=== PATIENT | female | born 1975 | race Caucasian/White ===

== ENCOUNTER 2024-07-16 08:17 | Outpatient (OUT) | payer BC, SELFPAY ==
[2024-07-16 08:33] LABS: Basophils Absolute Auto 0.1 10^3/uL (0.0-0.1); Basophils Percent Auto 1.5 % (0.2-2.0); Eosinophils Absolute Auto 0.1 10^3/uL (0.0-0.7); Eosinophils Percent Auto 2.3 % (0.9-7.0); Hematocrit 41.2 % (36.0-48.0); Hemoglobin 13.4 g/dL (12.0-16.0); Immature Granulocytes Abs Auto 0.01 10^3/uL (0.00-0.03); Immature Granulocytes Pct Auto 0.2 % (0.0-0.5); Lymphocytes Absolute Auto 1.9 10^3/uL (1.2-3.8); Lymphocytes Percent Auto 38.9 % (20.5-60.0); Mean Corpuscular HGB Conc 32.5 g/dL (29.9-35.2); Mean Corpuscular Hemoglobin 28.3 pg (26.7-34.0); Mean Corpuscular Volume 86.9 fL (81.0-99.0); Mean Platelet Volume 9.5 fL (9.5-13.5); Monocytes Absolute Auto 0.6 10^3/uL (0.3-0.8); Monocytes Percent Auto 11.5 % (1.7-12.0); Neutrophils Absolute Auto 2.2 10^3/uL (1.4-6.5); Neutrophils Percent Auto 45.6 % (43.0-75.0); Platelet Count 207 10^3/uL (150-450); Red Blood Count 4.74 10^6/uL (4.20-5.40); White Blood Count 4.8 10^3/uL (4.0-11.0)
[2024-07-16 10:13] LABS: Free T4 0.79 ng/dL (0.76-1.46)
[2024-07-16 10:15] LABS: Anion Gap 11.5; BUN Creatinine Ratio 15.1; Calcium 8.5 mg/dL (8.5-10.1); Carbon Dioxide 26.2 mmol/L (21.0-32.0); Chloride 106 mmol/L (98-107); Estimated GFR (African America >60 (>=60); Estimated GFR (Non-African Ame >60 (>=60); Free T3 2.39 pg/mL (2.18-3.98); Glucose 87 mg/dL (74-106); Potassium 3.7 mmol/L (3.5-5.1); Sodium 140 mmol/L (136-145); Thyroid Stimulating Hormone 9.035 uIU/mL (0.358-3.740)
== END 2024-07-16 08:18 | disposition home or self-care (01) ==
LOC: LAB 08:21
PROVIDERS: PCP Family Medicine; Visit Provider Family Medicine
DX: R53.83 Other fatigue (principal); E03.9 Hypothyroidism, unspecified; L65.9 Nonscarring hair loss, unspecified
CPT/HCPCS: 36415; 80048; 84439; 84443; 84481; 85025

== ENCOUNTER 2024-10-01 08:23 | Outpatient (OUT) | payer BC, SELFPAY ==
--- OUTSIDE RECORDS SUMMARY | 2024-10-01 08:45 | XMS_ITS | CCD ---
Author Organization [facility] Clini[facility] Care Team Providers Care Welding Engineer Name Role Phone Kassaava, Arnold Unavailable Unavailable Kassavin, Arnold Unavailable Unavailable Kassavin, Arnold Unavailable Unavailable AMIN, DAINA~[phone] UNKNOWN Unavailable Unavailable AMIN, DAINA~[phone] UNKNOWN Unavailable Unavailable AMIN, DAINA~[phone] UNKNOWN Unavailable Unavailable AMIN, DAINA~[phone] UNKNOWN Unavailable Unavailable AMIN, DAINA~[phone] UNKNOWN Unavailable Unavailable KASSAVIN, ARNOLD Unavailable Unavailable AMIN, DAINA E Unavailable Unavailable KASSAVIN, ARNOLD Unavailable Unavailable AMIN, DAINA E Unavailable Unavailable KASSAVIN, ARNOLD Unavailable Unavailable AMIN, DAINA E Unavailable Unavailable BIJAL VILLAGRAN Attending Unavailable ELOISA DAINA Primary Care Unavailable JANEE EPSTEIN Admitting Unavailable ELOISA DAINA Jack Primary Care Unavailable JANEE EPSTEIN Attending Unavailable JANEE EPSTEIN Consulting Unavailable JANEE EPSTEIN Attending Unavailable JANEE EPSTEIN Consulting Unavailable JANEE EPSTEIN Admitting Unavailable Carola Benavides Unavailable [phone] Allergies Allergy Classification Reported Allergen(s) Allergy Type Date of Onset Reaction(s) Facility (2 sources) Penicillins; Translations: [PENICILLINS] Propensity to adverse reactions to drug (disorder) 10-15-20 17 [facility] Repository (1 source) Penicillin Drug Allergy 03-06-20 16 Unknown [facility] Other (1 source) Substance with penicillin structure and antibacterial mechanism of action (substance) Drug allergy 04-02-20 17 Unknown [facility] Other (1 source) [facility] Propensity to adverse reactions 01-02-20 18 Unknown [facility] Other (1 source) patient allergy list reviewed by nurse or physicia Propensity to adverse reactions 06-25-20 Comment:Done [facility] Other (1 source) Allergies Reconciled Propensity to adverse reactions Unknown [facility] Other Medications Current Medications Medication Drug Class(es) Dates Sig (Normalized) Sig (Original) doxycycline monohydrate 100 mg oral tablet (1 source) Tetracycline-clas s Drug Start: 10-15-2023 take 1 tablet by mouth every twelve hours Doxycycline Monohydrate 100 MG 1 tablet Orally Twice a day for 10 days Sep, Active Completed/Discontinued Medications Medication Drug Class(es) Dates Sig (Normalized) Sig (Original) phentermine hydrochloride 37.5 mg oral tablet (2 sources) Sympathomimetic Amine Anorectic Start: 01-26-2024 End: 07-15-2024 take 1 tablet by mouth once daily 30 minutes after breakfast Phentermine (Adipex-P) 37.5 mg tablet Discontinued 37.5 MG PO Every morning February 26, 2024 4:39pm July 15, 2024 8:53am must administer 30 minutes before or 1-2 hours after breakfast Problems Active Problems Problem Classification Problem Date Documented Date Episodic/Chronic Abdominal pain (1 source) Pelvic and perineal pain; Translations: [Pelvic and perineal pain] Episodic Anxiety disorders (2 sources) Anxiety disorder; Translations: [Anxiety disorder, unspecified] 01-23-2024 Chronic Malaise and fatigue (2 sources) Fatigue; Translations: [Other fatigue] 07-15-2024 Episodic Menstrual disorders (2 sources) Excessive and frequent menstruation; Translations: [Excessive and frequent menstruation with regular cycle] Chronic Mood disorders (2 sources) Dysthymia; Translations: [Dysthymic disorder] Onset: 04-04-2016 01-23-2024 Chronic Other aftercare (1 source) History and physical examination, follow-up; Translations: [Encounter for follow-up examination after completed treatment for conditions other than malignant neoplasm] Episodic Other female genital disorders (1 source) Noninflammatory disorder of the vagina; Translations: [Other specified noninflammatory disorders of vagina] Episodic Other non-traumatic joint disorders (1 source) Arthropathy; Translations: [Joint disorder, unspecified] Episodic Other nutritional; endocrine; and metabolic disorders (2 sources) Obesity; Translations: [Obesity, unspecified] 01-27-2024 Chronic Other nutritional; endocrine; and metabolic disorders (1 source) Obese class I; Translations: [Body mass index 34.0-34.9, adult] Onset: 01-05-2018 Chronic Other nutritional; endocrine; and metabolic disorders (3 sources) Obese class II; Translations: [Body mass index 37.0-37.9, adult] Onset: 03-06-2016 Chronic Other nutritional; endocrine; and metabolic disorders (1 source) Body mass index 30+ - obesity; Translations: [Body mass index 36.0-36.9, adult] Onset: 03-24-2017 Chronic Other nutritional; endocrine; and metabolic disorders (4 sources) Abnormal weight gain; Translations: [ABNORMAL WEIGHT GAIN] Onset: 09-16-2020 Episodic Other nutritional; endocrine; and metabolic disorders (1 source) Abnormal weight gain; Translations: [Abnormal weight gain] Episodic Other screening for suspected conditions (not mental disorders or infectious disease) (1 source) Imaging result abnormal; Translations: [Abnormal findings on diagnostic imaging of other specified body structures] Chronic Other screening for suspected conditions (not mental disorders or infectious disease) (1 source) Blood chemistry abnormal; Translations: [Abnormal finding of blood chemistry, unspecified] Episodic Other skin disorders (1 source) Loss of hair; Translations: [Nonscarring hair loss, unspecified] 07-15-2024 Episodic Other skin disorders (1 source) Nonscarring hair loss, unspecified; Translations: [Alopecia, unspecified] 07-15-2024 Episodic Other upper respiratory infections (2 sources) Chronic sinusitis; Translations: [Chronic sinusitis, unspecified] 01-23-2024 Chronic Other upper respiratory infections (2 sources) Acute maxillary sinusitis; Translations: [Acute recurrent maxillary sinusitis] Onset: 09-26-2016 Episodic Spontaneous (1 source) Miscarriage without complication; Translations: [Complete or unspecified spontaneous without complication] Episodic Thyroid disorders (3 sources) Hypothyroidism; Translations: [Hypothyroidism, unspecified] 01-23-2024 Chronic Past or Other Problems Problem Classification Problem Date Documented Da te Episodic/Chronic Contraceptive and procreative management (1 source) Surveillance of contraception; Translations: [Encounter for contraceptive management, unspecified] Resolved: 09-11-2020 Episodic Deficiency and other anemia (2 sources) Iron deficiency anemia; Translations: [Iron deficiency anemia, unspecified] Onset: 03-06-2016 01-23-2024 Episodic Diseases of mouth; excluding dental (1 source) Recurrent aphthous stomatitis; Translations: [Recurrent oral aphthae] Onset: 12-19-2016 Episodic Genitourinary symptoms and ill-defined conditions (1 source) Dysuria; Translations: [Dysuria] Onset: 08-13-2017 Episodic Inflammatory diseases of female pelvic organs (5 sources) Acute vaginitis; Translations: [Acute vaginitis] Onset: 06-25-2018 Episodic Other connective tissue disease (1 source) Pain in limb; Translations: [Pain in right lower leg] Onset: 01-21-2019 Episodic Phlebitis; thrombophlebitis and thromboembolism (2 sources) Personal history of other venous thrombosis and embolism; Translations: [Thrombophlebitis of superficial veins of lower extremity] Onset: 10-02-2017 Episodic Residual codes; unclassified (1 source) Edema; Translations: [Edema] Onset: 09-25-2017 Episodic Unclassified (1 source) Localized edema; Translations: [Localized edema] Onset: 10-15-2017 Episodic Results Test Name Value Interpretation Reference Range Facility CBC AUTO DIFFon 09-16-2020 Basophils (Bld) [#/Vol] 0.1 103/ul Normal 0.0-0.1 [facility] Comment on above: Performed By: #### C BC #### [facility] [address] [place], [place] [address] Hola Veronique Basophils/100 WBC (Bld) 1.1 % Normal 0.2-2.0 [facility] Comment on above: Performed By: #### C BC #### [facility] [address] [place], [place] [address] Hola Veronique Eosinophils (Bld) [#/Vol] 0.1 103/ul Normal 0.0-0.7 [facility] Comment on above: Performed By: #### C BC #### [facility] [address] [place], [place] [address] Hola Veronique Eosinophils/100 WBC (Bld) 0.9 % Normal 0.9-7.0 [facility] Comment on above: Performed By: #### C BC #### [facility] [address] [place], [place] [id number] Hola Veronique Erythrocyte distribution width (RBC) [Ratio] 13.1 % Normal 11.0-15.0 [facility] Comment on above: Performed By: #### C BC #### [facility] [address] [place], [place] [id number] Hola Veronique Hematocrit (Bld) [Volume fraction] 42.9 % Normal 36.0-48.0 [facility] Comment on above: Performed By: #### C BC #### [facility] [address] [place], [place] [id number] Hola Veronique Hemoglobin (Bld) [Mass/Vol] 14.0 g/dL Normal 12.0-16.0 [facility] Comment on above: Performed By: #### C BC #### [facility] [address] [place] [address] Hola Veronique IG # 0.01 10e3/ul Normal 0.00-0.03 [facility] Comment on above: Performed By: #### C BC #### [facility] [address] [place] [address] Hola Veronique IG % 0.2 % Normal 0.0-0.5 [facility] Comment on above: Performed By: #### C BC #### [facility] [address] [place], [place] [id number] Hola Veronique Lymphocytes (Bld) [#/Vol] 1.8 103/ul Normal 1.2-3.8 [facility] Comment on above: Performed By: #### C BC #### [facility] [address] [place] [address] Hola Veronique Lymphocytes/100 WBC (Bld) 34.0 % Normal 20.5-60.0 [facility] Comment on above: Performed By: #### C BC #### [facility] [address] [place], [place] [id number] Hola Veronique MANUAL DIFF REQ NO Normal [facility] Comment on above: Performed By: #### C BC #### [facility] [address] [place] [address] Hola Veronique MCH (RBC) [Entitic mass] 28.6 pg Normal 26.7-34.0 [facility] Comment on above: Performed By: #### C BC #### [facility] [address] [place] [address] Hola Piper MCHC (RBC) [Mass/Vol] 32.6 g/dL Normal 29.9-35.2 [facility] Comment on above: Performed By: #### C BC #### [facility] [address] [place] [address] Holafranklyn Piper MCV (RBC) [Entitic vol] 87.6 fL Normal 81.0-99.0 [facility] Comment on above: Performed By: #### C BC #### [facility] [address] [place] [address] Hola Veronique Monocytes (Bld) [#/Vol] 0.6 103/ul Normal 0.3-0.8 [facility] Comment on above: Performed By: #### C BC #### [facility] [address] [place] [address] Holafranklyn Piper Monocytes/100 WBC (Bld) 10.5 % Normal 1.7-12.0 [facility] Comment on above: Performed By: #### C BC #### [facility] [address] [place] [address] Hola Veronique Neutrophils (Bld) [#/Vol] 2.8 103/ul Normal 1.4-6.5 [facility] Comment on above: Performed By: #### C BC #### [facility] [address] [place] [address] Hola Veronique Neutrophils/100 WBC (Bld) 53.3 % Normal 43.0-75.0 [facility] Comment on above: Performed By: #### C BC #### [facility] [address] [place] [address] Hola Veronique Platelet mean volume (Bld) [Entitic vol] 10.3 fL Normal 9.5-13.5 [facility] Comment on above: Performed By: #### C BC #### [facility] [address] [place], [place] [address] Holafranklyn Piper Platelets (Bld) [#/Vol] 226 103/ul Normal 150-450 [facility] Comment on above: Performed By: #### C BC #### [facility] [address] [place], [place] [address] Hola Veronique RBC (Bld) [#/Vol] 4.90 106/ul Normal 4.20-5.40 [facility] Comment on above: Performed By: #### C BC #### [facility] [address] [place] [address] Hola Veronique WBC (Bld) [#/Vol] 5.3 103/ul Normal 4.0-11.0 [facility] Comment on above: Performed By: #### C BC #### [facility] [address] [place] [address] Hola Veronique FREE T3on 09-16-2020 Free T3 [Mass/Vol] 2.66 pg/mL Critically low 2.77-5.27 [facility] Comment on above: Performed By: #### F T3, TSH #### [facility] [address] [place], [place] [id number] Hola Veronique FREE T4on 09-16-2020 Free T4 [Mass/Vol] 0.92 ng/dL Normal 0.78-2.19 [facility] Comment on above: Performed By: #### F T4 #### [facility] [address] [place] [address] Hola Veronique GLYCOHEMOGLOBIN A1Con 2019 Glucose [Mass/Vol] 114 mg/dL Normal [facility] Comment on above: Performed By: #### A 1C #### [facility] [address] [place] [address] Hola Veronique HbA1c (Bld) [Mass fraction] 5.6 % Normal <=6.0 [facility] Comment on above: Performed By: #### A 1C #### [facility] [address] [place] [address] Hola Veronique TSHon 09-16-2020 TSH Qn SEE BELOW Normal [facility] Comment on above: Result Comment: <0.3 4 UIU/ml HYPERTHYROID 0.34-5.60 UIU/ml EUTHYROID >5.60 UIU/ml HYPOTHYROID Performed By: #### F T3, TSH #### [facility] [address] [place] [address] Hola Piper TSH Qn 11.588 uIU/mL Critically high 0.470-4.680 [facility] Comment on above: Performed By: #### F T3, TSH #### [facility] [address] [place] [address] Hola Piper VAGINITIS/VAGINOSIS DNA PROB Francisco Javier 09-14-2020 Libra species Negative Normal Negative [facility] Comment on above: Performed By: #### V AGINT #### [facility] [address] [place] [address] Hola Veronique Gardnerella vaginalis Positive Abnormal Negative [facility] Comment on above: Performed By: #### V AGINT #### [facility] [address] [place] [address] Hola Piper Trichomonas vaginalis Negative Normal Negative [facility] Comment on above: Performed By: #### V AGINT #### [facility] [address] [place] [address] Hloa Piper CTA CHEST W WO CONTRASTon CTA CHEST W WO CONTRAST HISTORY: LEXIE CORRALES is a Female of 43 years age. Evaluate for pulmonary embolism. COMMENTS: CHEST PAIN, SOB COMPARISON: None TECHNIQUE: Thin spiral chest CT was performed per pulmonary embolism protocol, following uneventful administration of intravenous contrast. Amount of intravenous contrast: 100 mL of Isovue-370. MIP images are included. FINDINGS: There is no intraluminal filling defect identified within the central and proximal segmental pulmonary arteries to suggest pulmonary embolism. The thoracic aorta shows no evidence for dissection. Mild groundglass opacities are seen in the bases and in the lingula and right middle lobe inferiorly.. Also there is atelectasis. There are no definite pulmonary nodules. In the prevascular region there is soft tissue density that measures about 1.2 x 2.7 cm and is triangular-shaped. This could represent residual thymus. There is no hilar or axillary lymphadenopathy. No evidence of chest wall mass or pleural effusion is present. The central airways and visualized portion of the esophagus are normal. Limited survey views of the upper abdomen show a 9 mm nodule in the left adrenal gland. Mild degenerative changes are seen in the thoracic spine. IMPRESSION: 1. No CT evidence of pulmonary embolism in the primary or secondary branches of the pulmonary arteries. 2. There are groundglass opacities and atelectasis. No consolidating pneumonia or pneumothorax is seen. All CT scans at this facility use dose modulation, iterative reconstruction, and/or weight based dosing when appropriate to reduce radiation dose to as low as reasonably achievable. Interpreted by: Kevon Mast DO Signed by: Kevon Mast DO 04/01/19 Final result Normal [facility] Coding Summary.on 01-19-2018 Coding Summary. CODING DATE: 018 FINAL [facility] STATUS: Home (Routine DC) PAYOR: Commercial Insurance ADMIT DX: REASON FOR VISIT DX: Z12.31 Encounter for screening mammogram for malignant neoplasm of breast FINAL DX: PRINCIPAL: Z12.31 Encounter for screening mammogram for malignant neoplasm of breast SECONDARY: E03.9 Hypothyroidism, unspecified PROCEDURES DOCTOR NAME DATE NOTE: The code number assigned matches the documented diagnosis and / or procedure in the patient's chart. However, the narrative phrase printed from the coding software may appear abbreviated, or result in slightly different terminology. Coded By: Manuela Spears Date Saved: 01/19/2018 10:03 am Normal [facility] [place] Mamm Screen w/CAD if perf and 3D Bilon 01-17-2018 Bilirubin (direct) Exam Date/Time: 018 17:53 ESTReason for Exam:SCREENINGReportIMPRESSI ON: BIRADS 1 NEGATIVE, NORMAL INTERVAL FOLLOW-UP (10R1)Follow-up: 12 MONTH RECALLCLINICAL HISTORY: SCREENING.COMPARISONS: None available.TECHNIQUE: Routine full-field digital mammograms and 3D breast tomosynthesis of bothbreasts were obtained. FINDINGS: Both breasts are heterogeneously dense with mild asymmetry.There are no dominant masses, suspicious microcalcifications, areas of architecturaldistortion, or other findings of concern are identified.Dense Breast: YesCAD analysis was performed and used in the interpretation.Board Certified Radiologists. Accredited by the ACR and FDA.MAMMOGRAPHY IS VERY IMPORTANT TO YOUR HEALTH. THE CURRENT [employer] GUIDELINES RECOMMENDS ANNUALMAMMOGRAPHY BEGINNING AT AGE 40. THIS FACILITY UTILIZES A REMINDER SYSTEM TO ENSURE ALL PATIENTS RECEIVE REMINDERNOTIFICATIONS AT THE APPROPRIATE TIME BASED ON THE RECOMMENDATIONS OF THIS EXAM.\X09\ FINAL REPORT Dictated: 01/17/2018 3:08 pm Jarret Mena MD Signed (Electronic Signature): 01/17/2018 3:08 pm Signed by: Jarret Mena MD Transcribed by: CHONG Technologist: VICKI Assessment: BI-RADS Category 1-Negative Recommendation: Normal interval follow-up Normal [facility] Free T4on 01-15-2018 Thyroxine (T4) free 0.74 ng/dL Normal 0.58-1.64 [facility] Comment on above: Performed By: #### 2 [id number], [id number] ####[facility] [address] [place] [address] TSHon 01-15-2018 Thyroid stimulating hormone (TSH) 14.28 mcIU/mL High 0.34-5.60 [facility] Comment on above: Performed By: #### 2 [id number], [id number] ####[facility] [address] [place] [address] Coding Summary.on 01-01-2018 Coding Summary. CODING DATE: 018 FINAL [facility] STATUS: Home (Routine DC) PAYOR: Commercial Insurance APC DESCRIPTION 5522 Level 2 Imaging without Contrast ADMIT DX: REASON FOR VISIT DX: Z86.718 Personal history of other venous thrombosis and embolism FINAL DX: PRINCIPAL: Z86.718 Personal history of other venous thrombosis and embolism SECONDARY: I82.811 Embolism and thrombosis of superficial veins of right lower extremity PYMT PROC APC STAT DESCRIPTION DOCTOR NAME DATE NOTE: The code number assigned matches the documented diagnosis and / or procedure in the patient's chart. However, the narrative phrase printed from the coding software may appear abbreviated, or result in slightly different terminology. Coded By: Manuela Spears Date Saved: 01/01/2018 01:37 pm Normal [facility] PROGRESSon 12-31-2017 PROGRESS HNO ID: [id number] thor: Arnold Alva: (none)Author Type: PhysicianType: Progress NotesFiled: 12/31/2017 2:03 PMNote Text:Heart and Vascular [facility] Analy Martinez Department of Cardiovascular MedicineOUTPATIENT VISIT DATE December 31, 2017OUTPATIENT VISIT TYPEESTABLFORMERLY [facility]PRD.[facility] CARE PHYSICIAN:Daina Amin MD ([facility])[address] [facility] [place] [address]Enpxi: [phone]: [phone] PHYSICIANDaina Amin MD ([facility])[address] [facility] [id number] COMPLAINT:No chief complaint on file.HISTORY OF PRESENT ILLNESS:Lexie Corrales was referred for consultation by Dr. Amin. Opinions andrecommendations in this consultation will be transmitted back to thereferring physician by [facility] notes or via mail.Ms. Corrales is a 42 year old female who is seen today for follow upevaluation of right gastrocnemius DVT and small saphenous veinthrombophlebitis diagnosed at the [facility] 09/25/17.States she is doing well, has only mild intermittent discomfort in theright calf.Underwent DUS which showed some thrombus in the right small saphenousvein. Negative otherwise.On Eliquis.Initial symptoms had been preceded by few day history of severe right calfcramps. Started on Eliquis by Dr Amin which she continues. Had been onOCT, discontinued since.No recent travel, no significant period of immobility, nonsmoker. No FHxof hypercoagulable syndrome.No past medical history on file.No past surgical history on file.PAST MEDICAL HISTORYDiagnosis Date- DVT (deep venous thrombosis) (HCC)No past surgical history on file.SOCIAL HISTORYSocial HistorySubstance Use Topics- Smoking status: Never Smoker- Smokeless tobacco: Never Used- Alcohol use Not on fileNo family history on file.ALLERGIES:ALLERGIESAlle rgen Reactions- Penicillins GI UpsetMEDICATIONS:venlafaxine ER (EFFEXOR XR) 37.5 mg 24 hr capsule Take 37.5 mg by mouthonce daily.ELIQUIS 5 mg tab tab(s) Take 5 mg by mouth twice daily.REVIEW OF SYSTEMS:GENERAL: no acute distressAll other ROS: negativeI personally interviewed, confirmed and edited the above information asobtained by others.PHYSICAL EXAMINATION:BP 125/94 (BP Site: Left Arm, BP Position: Sitting, BP Cuff Size: LargeAdult) Pulse 95 Resp 16 SpO2 97%General appearance: well nourished, alert and cooperative individual, inno acute distress.Neck: no bruitsPulmonary: Lungs clear to auscultation bilaterally.Coronary: regular rate and regular rhythmLower Extremities: Feet and toes warmPalp DP pulsesCalves warm, nontenderNo varicose veinsCARDIOVASCULAR MEDICINE TESTING:I have personally reviewed the DUS DVT.IMPRESSION/PLAN:Ms. Corrales is a 42 year old female with resolved superficial andgastrocnemius DVT of the right leg. Treated for 3 month course withanticoagulation.May discontinue Eliquis. Avoid OCT. Follow up as needed.Arnold Guillen MD Normal [facility] US LE Venous Duplex Righton 12-31-2017 US LE Venous Duplex Right Exam Date/Time:12/31/2017 12:52 ESTReason for Exam:RIGHT DVTReportIMPRESSION: NO EVIDENCE OF VENOUS THROMBOSIS INVOLVING VISUALIZED DEEP VEINS OF THERIGHT LEG. SUPERFICIAL VENOUS THROMBOSIS INVOLVING THE RIGHT SMALL SAPHENOUS VEIN.CLINICAL HISTORY: RIGHT DVT. COMMENT: On the right, the greater saphenous vein, common femoral vein, deep femoral vein,femoral vein, and popliteal vein demonstrate spontaneous phasic venous flow, withaugmentation, competence, non-pulsatility, and compressibility every 2 cm, except forlack of competence of the greater saphenous and common femoral veins. The rightposterior tibial and peroneal veins of the deep venous system compress. There islack of compressibility of the right small saphenous vein in the mid calf, consistentwith thrombus. The contralateral left common femoral vein demonstrates spontaneousphasic venous flow. FINAL REPORT Dictated: 12/31/2017 2:30 pm Samson Hunter M.D. Signed (Electronic Signature): 12/31/2017 2:30 pm Signed by: Samson Hunter M.D. Transcribed by: CHONG Technologist: RUPINDER Maki [facility] US-US LE Venous Duplex Right IMPORTon 12-31-2017 US-US LE Venous Duplex Right IMPORT Images were obtained outside of [facility] [id number] Normal [facility] CNOVon 11-03-2017 CNOV Office Visit (VASSFT) ----LEXIE CORRALES ([id number]) 1975 FDate Time Provider Dnrtabfsge65/18/17 1:30 PM ARNOLD GUILLEN During your visit today, we recorded the following information about you: Pulse Respiration Blood pressure 72/minute 16/minute 137/86Danishelil Guillen MD 11/03/2017 1:36 PM [facility] [place] [facility] Department of Cardiovascular MedicineOUTPATIENT VISIT DATE November 03, 2017OUTPATIENT VISIT TYPEESTABLISHEDPRIMARY CARE PHYSICIAN:Daina Amin MD ([facility])[address] [place] [address]Foidm: [phone]: [phone] PHYSICIANDaina Amin MD ([facility])[address] [facility] [address]YZXVE COMPLAINT:No chief complaint on file.HISTORY OF PRESENT ILLNESS:Lexie Corrales was referred for consultation by Dr. Amin. Opinions andrecommendations in this consultation will be transmitted back to the referringphysician by Epic notes or via mail.Ms. Corrales is a 42 year old female who is seen today for follow up evaluationof right gastrocnemius DVT and small saphenous vein [facility].Underwent recent follow DUS which showed unchanged RLE venous thrombous.Has some edema of the right leg, worse after being on feet, better with use ofcompression. Other than edema, denies calf discomfort.Initial symptoms had been preceded by few day history of severe right calfcramps. Started on Eliquis by Dr Amin which she continues. Had been on AUG,discontinued since.No recent travel, no significant period of immobility, nonsmoker. No FHx ofhypercoagulable syndrome.No past medical history on file.No past surgical history on file.SOCIAL HISTORYSocial HistorySubstance Use Topics- Smoking status: Never Smoker- Smokeless tobacco: Not on file- Alcohol use Not on fileNo family history on file.ALLERGIES:ALLERGIESAlle rgen Reactions- Penicillins GI UpsetMEDICATIONS:levothyroxi ne (SYNTHROID) 100 mcg tablet Take 100 mcg by mouth daily beforebreakfast.venlafaxine ER (EFFEXOR XR) 75 mg 24 hr capsule Take 75 mg by mouth once daily.ferrous sulfate EC 324 mg (65 mg iron) TbEC Take 324 mg by mouth once daily.ELIQUIS 5 mg tab tab(s) Take 5 mg by mouth twice daily.REVIEW OF SYSTEMS:GENERAL: no acute distressAll other ROS: negativeI personally interviewed, confirmed and edited the above information asobtained by others.PHYSICAL EXAMINATION:BP 137/86 (BP Site: Right Arm, BP Position: Sitting, BP Cuff Size: Large Adult) Pulse 72 Resp 16 SpO2 97%General appearance: well nourished, alert and cooperative individual, in noacute distress.Neck: no bruitsPulmonary: Lungs clear to auscultation bilaterally.Coronary: regular rate and regular rhythmLower Extremities: Feet and toes warmPalp DP pulsesCalves nontenderNo significant edema in feetCARDIOVASCULAR MEDICINE TESTING:I have personally reviewed the DUS DVT.IMPRESSION/PLAN:Ms. Corrales is a 42 year old female with right gastrocnemius DVT and smallsaphenous vein thrombophlebitis.Reassess RLE with DUS in 2 months.Continue Eliquis in interim. Continue compression therapy.Arnold Guillen MDReferring Provider: DAINA AMIN [[id number]]Allergies As of Date: 11/03/2017 Noted Allergy ReactionPENICILLINS 10/15/2017 8 - GI UpsetDate Reviewed: 11/03/2017Reviewed by: Arnold Guillen - Fully AssessedPrimary Visit Diagnosis:Personal history of DVT (deep vein thrombosis) [Z86.718]Order(s):US LEG VEIN DVT UNL VAS LAB [[id number]] Order #: [id number] FUTUREPrescriptions as of 11/03/2017 Sig: LEVOTHYROXINE 100 MCG TABLET Take 100 mcg by mouth daily b* VENLAFAXINE ER 75 MG CAPSULE,* Take 75 mg by mouth once rabia* FERROUS SULFATE 324 MG (65 MG* Take 324 mg by mouth once carmela* ELIQUIS 5 MG TABLET Take 5 mg by mouth twice rabia*Problem List As Of Date: 11/03/2017(None)Disposition: Return in about 2 months (around 01/04/2018).Follow-up and Disposition History RecordedEncounter Number: [id number] Status:Closed by ARNOLD GUILLEN MD on 11/03/17 [facility] PROGRESSon 11-03-2017 PROGRESS HNO ID: [id number] thor: Anrold Alva: (none)Author Type: PhysicianType: Progress NotesFiled: 11/03/2017 1:36 PMNote Text:[facility] InstituteRobnorthern [facility] and Analy [place] Department of Cardiovascular MedicineOUTPATIENT VISIT DATE November 03, 2017OUTPATIENT VISIT TYPEESTABLISHEDPRIMARY CARE PHYSICIAN:Daina Amin MD ([facility])[address] [facility] [place] [address]Dtlws: [phone]: [phone] PHYSICIANDaina Amin MD ([facility])[address] [facility] [address]WWBNM COMPLAINT:No chief complaint on file.HISTORY OF PRESENT ILLNESS:Lexie Corrales was referred for consultation by Dr. Amin. Opinions andrecommendations in this consultation will be transmitted back to thereferring physician by [facility] notes or via mail.Ms. Corrales is a 42 year old female who is seen today for follow upevaluation of right gastrocnemius DVT and small saphenous veinthrombophlebitis diagnosed at the [facility] 09/25/17.Underwent recent follow DUS which showed unchanged RLE venous thrombous.Has some edema of the right leg, worse after being on feet, better withuse of compression. Other than edema, denies calf discomfort.Initial symptoms had been preceded by few day history of severe right calfcramps. Started on Eliquis by Dr Amin which she continues. Had been onOCT, discontinued since.No recent travel, no significant period of immobility, nonsmoker. No FHxof hypercoagulable syndrome.No past medical history on file.No past surgical history on file.SOCIAL HISTORYSocial HistorySubstance Use Topics- Smoking status: Never Smoker- Smokeless tobacco: Not on file- Alcohol use Not on fileNo family history on file.ALLERGIES:ALLERGIESAlle rgen Reactions- Penicillins GI UpsetMEDICATIONS:levothyroxi ne (SYNTHROID) 100 mcg tablet Take 100 mcg by mouth dailybefore breakfast.venlafaxine ER (EFFEXOR XR) 75 mg 24 hr capsule Take 75 mg by mouth oncedaily.ferrous sulfate EC 324 mg (65 mg iron) TbEC Take 324 mg by mouth oncedaily.ELIQUIS 5 mg tab tab(s) Take 5 mg by mouth twice daily.REVIEW OF SYSTEMS:GENERAL: no acute distressAll other ROS: negativeI personally interviewed, confirmed and edited the above information asobtained by others.PHYSICAL EXAMINATION:BP 137/86 (BP Site: Right Arm, BP Position: Sitting, BP Cuff Size: LargeAdult) Pulse 72 Resp 16 SpO2 97%General appearance: well nourished, alert and cooperative individual, inno acute distress.Neck: no bruitsPulmonary: Lungs clear to auscultation bilaterally.Coronary: regular rate and regular rhythmLower Extremities: Feet and toes warmPalp DP pulsesCalves nontenderNo significant edema in feetCARDIOVASCULAR MEDICINE TESTING:I have personally reviewed the DUS DVT.IMPRESSION/PLAN:Ms. Corrales is a 42 year old female with right gastrocnemius DVT and smallsaphenous vein thrombophlebitis.Reassess RLE with DUS in 2 months.Continue Eliquis in interim. Continue compression therapy.Arnold Guillen MD [facility] CNOVon 10-15-2017 CNOV Office Visit (VASSFT) ----COLELEXIE Herman ([id number]) 1975 [facility] Time Provider Jbxfrnzzwi00/29/17 3:20 PM ARNOLD GUILLEN During your visit today, we recorded the following information about you: Pulse Respiration Blood pressure Weight 82/minute 16/minute 116/80 98.9 kg Height 1.702 Chuck Guillen MD 10/15/2017 3:35 PM [facility] [place] and Analy [place] Department of Cardiovascular MedicineOUTPATIENT VISIT DATE October 15, 2017OUTPATIENT VISIT TYPENEWPRFIRSTHEALTH [facility] PHYSICIAN:Daina Amin MD ([facility])[address] [facility] [address]Ngvzb: [phone]: [phone] PHYSICIANDaina Amin MD ([facility])[address] [facility] [address] [facility] [address]GZONG COMPLAINT:No chief complaint on file.HISTORY OF PRESENT ILLNESS:Lexie Corrales was referred for consultation by Dr. Amin. Opinions andrecommendations in this consultation will be transmitted back to the referringphysician by Epic notes or via mail.Ms. Corrales is a 42 year old female who is seen today for evaluation of rightgastrocnemius DVT and small saphenous vein thrombophlebitis diagnosed at [facility] 09/25/17.This had been preceded by few day history of severe right calf cramps. Startedon Eliquis by Dr Amin. Discomfort has resolved. Had been on AUG, discontinuedsince.Notes mild residual right calf edema. No complaints otherwise.No recent travel, no significant period of immobility, nonsmoker. No FHx ofhypercoagulable syndrome.No past medical history on file.No past surgical history on file.SOCIAL HISTORYSocial HistorySubstance Use Topics- Smoking status: Never Smoker- Smokeless tobacco: Not on file- Alcohol use Not on fileNo family history on file.ALLERGIES:ALLERGIESAlle rgen Reactions- Penicillins GI UpsetMEDICATIONS:levothyroxi ne (SYNTHROID) 100 mcg tablet Take 100 mcg by mouth daily beforebreakfast.venlafaxine ER (EFFEXOR XR) 75 mg 24 hr capsule Take 75 mg by mouth once daily.ferrous sulfate EC 324 mg (65 mg iron) TbEC Take 324 mg by mouth once daily.ELIQUIS 5 mg tab tab(s) Take 5 mg by mouth twice daily.REVIEW OF SYSTEMS:GENERAL: no acute distressAll other ROS: negativeI personally interviewed, confirmed and edited the above information asobtained by others.PHYSICAL EXAMINATION:BP 116/80 (BP Site: Left Arm, BP Position: Sitting, BP Cuff Size: RegularAdult) Pulse 82 Resp 16 Ht 170.2 cm (5' 7ANDquot;) Wt 98.9 kg (218 lb) SpO2 98% BMI 34.14 kg/h2Demvynh appearance: well nourished, alert and cooperative individual, in noacute distress.Neck: no bruitsPulmonary: Lungs clear to auscultation bilaterally.Coronary: regular rate and regular rhythmLower Extremities: Feet and toes warmPalp DP pulsesMild edema of the right calf, nontenderCARDIOVASCULAR MEDICINE TESTING:I have personally reviewed the DUS right VIIMPRESSION/PLAN:Ms. Corrales is a 42 year old female with right gastrocnemius DVT, SSVsuperficial thrombophlebitis.Continue with anticoagulation. Compression stockings.Repeat DUS in one month. Follow up with test results.INGE Mendezeferrjose Provider: DAINA AMIN [[id number]]Allergies As of Date: 10/15/2017 Noted Allergy ReactionPENICILLINS 10/15/2017 8 - GI UpsetDate Reviewed: 10/15/2017Reviewed by: Arnold Guillen - Fully AssessedPrimary Visit Diagnosis:Personal history of DVT (deep vein thrombosis) [Z86.718]Order(s): LEG VEIN DVT UNL VAS LAB [[id number]] Order #: [id number] FUTUREPrescriptions as of 10/15/2017 Sig: LEVOTHYROXINE 100 MCG TABLET Take 100 mcg by mouth daily b* VENLAFAXINE ER 75 MG CAPSULE,* Take 75 mg by mouth once rabia* FERROUS SULFATE 324 MG (65 MG* Take 324 mg by mouth once carmela* ELIQUIS 5 MG TABLET Take 5 mg by mouth twice rabia*Medication notes this encounter VENLAFAXINE ER 75 MG CAPSULE,EXTENDED RELEASE 24 HR >> Crow Pat RN 10/15/2017 2:29 PM >> CROW PAT RN FriOct 15, 2017 2:29 PM Received from: External Pharmacy Received Sig: TAKE ONE CAPSULE BY MOUTHEVERY DAY ELIQUIS 5 MG TABLET >> Crow Pat RN 10/15/2017 2:39 PM >> CROW PAT RN FriOct 15, 2017 2:39 PM Received from: External Pharmacy Received Sig: TAKE 2 TABLETS BY MOUTH TWICEA DAY FOR 7 DAYSProblem List As Of Date: 10/15/2017(None)Disposition: Return in about 4 weeks (around 11/12/2017).Follow-up and Disposition History RecordedEncounter Number: [id number] Status:Closed by ARNOLD GUILLEN MD on 10/15/17 Normal [facility] PROGRESSon 10-15-2017 PROGRESS HNO ID: [id number] thor: Arnold Alva: (none)Author Type: PhysicianType: Progress NotesFiled: 10/15/2017 3:35 PMNote Text:[facility] InstituteRobnorthern navajo [facility] and Analy [facility] Department of Cardiovascular MedicineOUTPATIENT VISIT DATE October 15, 2017OUTPATIENT VISIT TYPENEWPRIMARY CARE PHYSICIAN:Daina Amin MD ([facility])[address] [place] [address]Sbiik: [phone]: [phone] PHYSICIANMarmatheus Amin MD ([facility])[address] [facility] [address]TEOYW COMPLAINT:No chief complaint on file.HISTORY OF PRESENT ILLNESS:Lexie Corrales was referred for consultation by Dr. Amin. Opinions andrecommendations in this consultation will be transmitted back to thereferring physician by [facility] notes or via mail.Ms. Corrales is a 42 year old female who is seen today for evaluation ofright gastrocnemius DVT and small saphenous vein thrombophlebitisdiagnosed at the [facility] 09/25/17.This had been preceded by few day history of severe right calf cramps.Started on Eliquis by Dr Amin. Discomfort has resolved. Had been on OCT,discontinued since.Notes mild residual right calf edema. No complaints otherwise.No recent travel, no significant period of immobility, nonsmoker. No FHxof hypercoagulable syndrome.No past medical history on file.No past surgical history on file.SOCIAL HISTORYSocial HistorySubstance Use Topics- Smoking status: Never Smoker- Smokeless tobacco: Not on file- Alcohol use Not on fileNo family history on file.ALLERGIES:ALLERGIESAlle rgen Reactions- Penicillins GI UpsetMEDICATIONS:levothyroxi ne (SYNTHROID) 100 mcg tablet Take 100 mcg by mouth dailybefore breakfast.venlafaxine ER (EFFEXOR XR) 75 mg 24 hr capsule Take 75 mg by mouth oncedaily.ferrous sulfate EC 324 mg (65 mg iron) TbEC Take 324 mg by mouth oncedaily.ELIQUIS 5 mg tab tab(s) Take 5 mg by mouth twice daily.REVIEW OF SYSTEMS:GENERAL: no acute distressAll other ROS: negativeI personally interviewed, confirmed and edited the above information asobtained by others.PHYSICAL EXAMINATION:BP 116/80 (BP Site: Left Arm, BP Position: Sitting, BP Cuff Size: RegularAdult) Pulse 82 Resp 16 Ht 170.2 cm (5' 7 ) Wt 98.9 kg (218 lb) SpO2 98% BMI 34.14 kg/j6Vvqecpf appearance: well nourished, alert and cooperative individual, inno acute distress.Neck: no bruitsPulmonary: Lungs clear to auscultation bilaterally.Coronary: regular rate and regular rhythmLower Extremities: Feet and toes warmPalp DP pulsesMild edema of the right calf, nontenderCARDIOVASCULAR MEDICINE TESTING:I have personally reviewed the DUS right VIIMPRESSION/PLAN:Ms. Corrales is a 42 year old female with right gastrocnemius DVT, SSVsuperficial thrombophlebitis.Continue with anticoagulation. Compression stockings.Repeat DUS in one month. Follow up with test results.Arnold Guillen MD Normal [facility] Vital Signs Date Time Vital Sign Value Performing Clinician Facility 07-15-2024 08:44-0400 Body height 170.18 cm [facility] 07-15-2024 08:44-0400 Body mass index (BMI) [Ratio] 34.9 kg/m2 [facility] 07-15-2024 08:44-0400 Body weight 101.15 kg [facility] 07-15-2024 08:44-0400 Diastolic blood pressure 72 mm[Hg] [facility] 07-15-2024 08:44-0400 Heart rate 79 /min [facility] 07-15-2024 08:44-0400 Systolic blood pressure 126 mm[Hg] [facility] 10-15-2023 08:30-0500 Body height 170.18 cm Carola Benavides Other [facility] Other 10-15-2023 08:30-0500 Body mass index (BMI) [Ratio] 37.59 kg/m2 Carola Benavides Other [facility] Other 10-15-2023 08:30-0500 Body weight 108.86 kg Carola Benavides Other [facility] Other 10-15-2023 08:30-0500 Diastolic blood pressure 62 mm[Hg] Carola Benavides Other [facility] Other 10-15-2023 08:30-0500 SaO2% (BldA) [Mass fraction] 96 % Carola Benavides Other [facility] Other 10-15-2023 08:30-0500 Systolic blood pressure 124 mm[Hg] Carola Benavides Other [facility] Other Encounters Encounter Date Encounter Type Care Provider Facility Start: 07-15-2024 End: 07-15-2024 ambulatory [facility] Work Phone: Start: 07-15-2024 End: 07-15-2024 Patient encounter procedure [facility] Work Phone: Start: 10-15-2023 End: 10-15-2023 ambulatory Carola Benavides Other [facility] Other Start: 10-15-2023 Office outpatient visit 15 minutes Carola Benavides [facility] Start: 09-16-2020 End: 09-17-2020 Patient encounter procedure JANEE EPSTEIN Facility:[facility] Start: 09-12-2020 End: 09-12-2020 Patient encounter procedure JANEE EPSTEIN Facility:[facility] Start: 04-01-2019 End: 04-01-2019 Emergency department patient visit BIJAL VILLAGRAN [facility] Start: 01-15-2018 End: 01-16-2018 Ambulatory DAINA~[id number] UNKNOWN AMIN Facility:[facility] Start: 12-31-2017 End: 01-01-2018 Ambulatory Arnoldshelli Guillen Facility:[facility] Start: 11-03-2017 End: 11-04-2017 Ambulatory ARNOLD SPENCEAVA [facility] Start: 10-15-2017 End: 10-16-2017 Ambulatory ARNOLD KASMICH [facility] Procedures Date Procedure Procedure Detail Performing Clinician Start: 04-01-2019 Ct angiography chest w/contrast/noncontrast BIJAL VILLAGRAN Start: 04-01-2019 Ecg routine ecg w/le ast 12 lds w/i&r BIJAL VILLAGRAN Start: 01-05-2018 General examination of patient Carola Benavides Other Start: 01-05-2018 Screening mammography J candelario Benavides Other Start: 01-05-2018 Venereal disease screening Carola Benavides Other Plan of Treatment Date Care Activity Detail [facility] Payers Date Payer Category Payer Private Health Insurance [id number] 2017 Unknown [id number] 1975 Unknown [id number] .16.84 [id number] 1975 Unknown [id number] .16.84 [id number] 1975 Unknown [id number] .16.84 [id number] 1957 Unknown [id number] [facility]72 [id number] Social History Date Type Detail Facility Unknown if ever smoked [facility] Other Sex Assigned At Sex Assigned At Bir th [facility] Other Start: 07-15-2024 Tobacco smoking status NHIS Never smoked tobacco (finding) [facility] Start: 1975 Sex Assigned At Female F [facility] Evaluation note 10-15-2023 Note Date & Type Note Facility 10-15-2023 Evaluation note Encounter Date Diagnosis Assessment Notes Sep, Acute non-recurren t maxillary sinusitis (ICD-10 - J01.00) Will tx tody for bacterial sinusitis based on physical exam and duration of symptoms. Take antibiotic as prescribed, complete entire course of therapy even if symptoms resolve. May continue Flonase or OTC nasal spray. Supportive care as directed, push fluids and rest, Tylenol/Motrin as directed for aches/fever, warm moist compress over sinuses several times a day, cool mist humidifier, nasal saline spray as directed. Symptoms should improve in the next 3 days, if symptoms persist follow up with PCP. Immediate eval for warning s/sx as discussed. Patient verbalizes understanding and is agreeable to treatment plan. [facility] Other Evaluation note Note Date & Type Note Facility Evaluation note Diagnosis Onset Date Fatigue acute Hair loss acute Hypothyroidism acute [facility] Work Phone: History general Narrative - Reported Note Date & Type Note Facility History general Narrative - Reported Type Medical History compliance with medical treatmen t Medical History depression Medical History DVT, Problem : after taking dottie h control, Medical History Hypothyroidism, Surgical History Appendectomy, 2005 Surgical History Endometrial Ablation, Surgical History Hysterectomy; : KRYSTLE, BS -pathology-Adenomyosis, Surgical History Tubal Ligation, [facility] Other Summary Purpose Family History Relationship Condition Age at Onset Recorded Date/T angel mother Hypertension Unknown Advance Directives Advance Directive Response Recorded Date/ Time Advance Directives No January 25, 024 10:22am Chief Complaint and Reason for Visit Chief Complaint thyroid check Reason for Visit Fatigue Hair loss Hypothyroidism Additional Source Comments INFORMATION SOURCE (unrecogn ized section and content) DATE CREATED AUTHOR [facility]/08/2018 [facility] DATE CREATED AUTHOR AUTHOR'S ORGANIZ ATION 05/08/2018 [facility] DATE CREATED AUTHOR AUTHOR'S ORGANIZ ATION 04/10/2019 Alyssa Teixeira [facility] DATE CREATED AUTHOR AUTHOR'S ORGANIZ ATION 09/22/2020 [facility] REASON FOR VISIT (unrecogniz ed section and content) sinus congestion Care Teams (unrecognized sec tion and content) Team Status: Active Member Role Status Dates Daina Amin MD Primary Care Provider Active Team Status: Inactive Member Role Status Dates Daina Amin MD Primary Care Provide r, Attending Provider Active Start: July 15, 2024 End: July 15, 2024 Goals (unrecognized section and content) Goals may be documented in a n alternate section FOR RECORDS PERTAINING TO PATIENTS WHO ARE OR HAVE BEEN ENROLLED IN A CHEMICAL DEPENDENCY/SUBSTANCEABUSE PROGRAM, SOME INFORMATION MAY BE OMITTED. This clinical summary was aggregated from multiple sources. Caution should be exercised in using it in the provision of clinical care. This summary normalizes information from multiple sources, and as a consequence, information in this document may materially change the coding, format and clinical context of patient data. In addition, data may be omitted in some cases. CLINICAL DECISIONS SHOULD BE BASED ON THE PRIMARY CLINICAL RECORDS. [facility] [employer] [facility]. provides no warranty or guarantee of the accuracy or completeness of information in this document.
[2024-10-01 09:01] LABS: Basophils Absolute Auto 0.1 10^3/uL (0.0-0.1); Basophils Percent Auto 1.6 % (0.2-2.0); Eosinophils Absolute Auto 0.1 10^3/uL (0.0-0.7); Eosinophils Percent Auto 1.6 % (0.9-7.0); Hematocrit 42.8 % (36.0-48.0); Hemoglobin 14.2 g/dL (12.0-16.0); Immature Granulocytes Abs Auto 0.02 10^3/uL (0.00-0.03); Immature Granulocytes Pct Auto 0.5 % (0.0-0.5); Lymphocytes Absolute Auto 1.9 10^3/uL (1.2-3.8); Lymphocytes Percent Auto 49.6 % (20.5-60.0); Mean Corpuscular HGB Conc 33.2 g/dL (29.9-35.2); Mean Corpuscular Hemoglobin 28.7 pg (26.7-34.0); Mean Corpuscular Volume 86.6 fL (81.0-99.0); Mean Platelet Volume 9.7 fL (9.5-13.5); Monocytes Absolute Auto 0.6 10^3/uL (0.3-0.8); Neutrophils Absolute Auto 1.2 10^3/uL (1.4-6.5); Neutrophils Percent Auto 31.7 % (43.0-75.0); Platelet Count 191 10^3/uL (150-450); Red Blood Count 4.94 10^6/uL (4.20-5.40); White Blood Count 3.9 10^3/uL (4.0-11.0)
[2024-10-01 09:26] LABS: Estimated Average Glucose 114 mg/dL; Glycohemoglobin A1C 5.6 % (4.5-6.2)
[2024-10-01 09:40] LABS: Alanine Aminotransferase 44 U/L (14-59); Alkaline Phosphatase 52 U/L (46-116); Anion Gap 11.6; Aspartate Amino Transferase 28 U/L (15-37); BUN Creatinine Ratio 12.5; Bilirubin Total 0.4 mg/dL (0.2-1.0); Calcium 8.1 mg/dL (8.5-10.1); Carbon Dioxide 26.1 mmol/L (21.0-32.0); Chloride 108 mmol/L (98-107); Estimated GFR (African America >60 (>=60 mL/min/1.73m^2); Estimated GFR (Non-African Ame >60 (>=60 mL/min/1.73m^2); Glucose 89 mg/dL (74-106); Potassium 3.7 mmol/L (3.5-5.1); Sodium 142 mmol/L (136-145); Total Protein 6.5 g/dL (6.4-8.2)
[2024-10-01 09:41] LABS: Albumin Globulin Ratio 0.9; Chol HDL Ratio 2.8; Cholesterol 164 mg/dL (<=200); Free T3 2.33 pg/mL (2.18-3.98); Globulin 3.5 g/dL; HDL Cholesterol 58 mg/dL (40-60); LDL Cholesterol Calculated 90.2 mg/dL; Triglycerides 79 mg/dL (<=150); VLDL CHOLESTEROL 15.8 mg/dL
[2024-10-03 10:07] LABS: Insulin 9.5 uIU/mL (2.6-24.9)
== END 2024-10-01 08:24 | disposition home or self-care (01) ==
LOC: LAB 08:25
PROVIDERS: PCP Nurse Practitioner Family; Visit Provider Nurse Practitioner Family
DX: Z00.00 Encounter for general adult medical examination without abnormal findings (principal); R42 Dizziness and giddiness
CPT/HCPCS: 36415; 80053; 80061; 83036; 83525; 83540; 84436; 84443; 84481; 85025

== ENCOUNTER 2025-03-08 06:56 | Outpatient (OUT) | payer BC, SELFPAY ==
--- OUTSIDE RECORDS SUMMARY | 2025-03-07 08:49 | XMS_ITS | CCD ---
Author Organization [facility] CliniSymt Care Team Providers Care Chief Juvenile Probation Officer Name Role Phone Kassaava, Arnold Unavailable Unavailable Kassavin, Arnold Unavailable Unavailable Kassavin, Arnold Unavailable Unavailable AMIN, DAINA~[phone] UNKNOWN Unavailable Unavailable AMIN, DAINA~[phone] UNKNOWN Unavailable Unavailable AMIN, DAINA~[phone] UNKNOWN Unavailable Unavailable AMIN, DAINA~[phone] UNKNOWN Unavailable Unavailable AMIN, DAINA~[phone] UNKNOWN Unavailable Unavailable KASSAVIN, ARNOLD Unavailable Unavailable AMIN, ADINA E Unavailable Unavailable KASSAVIN, ARNOLD Unavailable Unavailable AMIN, DAINA E Unavailable Unavailable KASSAVIN, ARNOLD Unavailable Unavailable AMIN, DAINA E Unavailable Unavailable BIJAL VILLAGRAN Attending Unavailable ELOISA DAINA Primary Care Unavailable JANEE EPSTEIN Admitting Unavailable ELOISA DAINA Jack Primary Care Unavailable JANEE EPSTEIN Attending Unavailable JANEE EPSTEIN Consulting Unavailable JANEE EPSTEIN Attending Unavailable JANEE EPSTEIN Consulting Unavailable JANEE EPSTEIN Admitting Unavailable Carola Benavides Unavailable [phone] Allergies Allergy Classification Reported Allergen(s) Allergy Type Date of Onset Reaction(s) Facility (2 sources) Penicillins; Translations: [PENICILLINS] Propensity to adverse reactions to drug (disorder) 10-15-20 17 AOF [facility] Repository (1 source) Penicillin Drug Allergy 03-06-20 16 Unknown [facility] Other (1 source) Substance with penicillin structure and antibacterial mechanism of action (substance) Drug allergy 04-02-20 17 Unknown [facility] Other (1 source) OCPS Propensity to adverse reactions 01-02-20 18 Unknown [facility] Other (1 source) patient allergy list reviewed by nurse or physicia Propensity to adverse reactions 06-25-20 Comment:Done [facility] Other (1 source) Allergies Reconciled Propensity to adverse reactions Unknown [facility] Other Medications Current Medications Medication Drug Class(es) [...] [#/Vol] 0.1 103/ul Normal 0.0-0.1 [facility] Comment on above: Performed By: #### C BC #### [facility] [address], [place] [address] Hola Veronique Basophils/100 WBC (Bld) 1.1 % Normal 0.2-2.0 [facility] Comment on above: Performed By: #### C BC #### [facility] [address], [place] [address] Hola Veronique Eosinophils (Bld) [#/Vol] 0.1 103/ul Normal 0.0-0.7 [facility] Comment on above: Performed By: #### C BC #### [facility] [address], [place] [address] Hola Veronique Eosinophils/100 WBC (Bld) 0.9 % Normal 0.9-7.0 [facility] Comment on above: Performed By: #### C BC #### [facility] [address] [place], [place] [id number] Hola Veronique Erythrocyte distribution width (RBC) [Ratio] 13.1 % Normal 11.0-15.0 [facility] Comment on above: Performed By: #### C BC #### [facility] [address] [place], [place] [id number] Hola Veronique Hematocrit (Bld) [Volume fraction] 42.9 % Normal 36.0-48.0 [facility] Comment on above: Performed By: #### C BC #### [facility] [address] [place], [place] [address] Hola Veronique Hemoglobin (Bld) [Mass/Vol] 14.0 g/dL Normal 12.0-16.0 [facility] Comment on above: Performed By: #### C BC #### [facility] [address] [place] [address] Hola Veronique IG # 0.01 10e3/ul Normal 0.00-0.03 [facility] Comment on above: Performed By: #### C BC #### [facility] [address] [place] [address] Hola Veronique IG % 0.2 % Normal 0.0-0.5 [facility] Comment on above: Performed By: #### C BC #### [facility] [address] [place], [place] [address] Hola Veronique Lymphocytes (Bld) [#/Vol] 1.8 103/ul Normal 1.2-3.8 [facility] Comment on above: Performed By: #### C BC #### [facility] [address] [place] [address] Hola Veronique Lymphocytes/100 WBC (Bld) 34.0 % Normal 20.5-60.0 [facility] Comment on above: Performed By: #### C BC #### [facility] [address] [place], [place] [address] Hola Veronique MANUAL DIFF REQ NO Normal [facility] Comment on above: Performed By: #### C BC #### [facility] [address] [place] [address] Hola Veronique MCH (RBC) [Entitic mass] 28.6 pg Normal 26.7-34.0 [facility] Comment on above: Performed By: #### C BC #### [facility] [address] [place] [address] Hola Piper MCHC (RBC) [Mass/Vol] 32.6 g/dL Normal 29.9-35.2 [facility] Comment on above: Performed By: #### C BC #### [facility] [address] [place] [address] Holafranklyn Piper MCV (RBC) [Entitic vol] 87.6 fL Normal 81.0-99.0 [facility] Comment on above: Performed By: #### C BC #### [facility] [address] [place] [address] Hola Veronique Monocytes (Bld) [#/Vol] 0.6 103/ul Normal 0.3-0.8 [facility] Comment on above: Performed By: #### C BC #### [facility] [address] [place] [address] Holafranklyn Piper Monocytes/100 WBC (Bld) 10.5 % Normal 1.7-12.0 [facility] Comment on above: Performed By: #### C BC #### [facility] [address] [place] [address] Hola Veronique Neutrophils (Bld) [#/Vol] 2.8 103/ul Normal 1.4-6.5 [facility] Comment on above: Performed By: #### C BC #### [facility] [address] [place] [address] Hola Veronique Neutrophils/100 WBC (Bld) 53.3 % Normal 43.0-75.0 [facility] Comment on above: Performed By: #### C BC #### [facility] [address] [place] [address] Hola Veronique Platelet mean volume (Bld) [Entitic vol] 10.3 fL Normal 9.5-13.5 [facility] Comment on above: Performed By: #### C BC #### [facility] [address], [place] [address] Holafranklyn Piper Platelets (Bld) [#/Vol] 226 103/ul Normal 150-450 [facility] Comment on above: Performed By: #### C BC #### [facility] [address], [place] [address] Hola Veronique RBC (Bld) [#/Vol] 4.90 106/ul Normal 4.20-5.40 [facility] Comment on above: Performed By: #### C BC #### [facility] [address] [place] [address] Hola Veronique WBC (Bld) [#/Vol] 5.3 103/ul Normal 4.0-11.0 [facility] Comment on above: Performed By: #### C BC #### [facility] [address] [place] [address] Hola Veronique FREE T3on 09-16-2020 Free T3 [Mass/Vol] 2.66 pg/mL Critically low 2.77-5.27 [facility] Comment on above: Performed By: #### F T3, TSH #### [facility] [address] [place], [place] [address] Hola Vreonique FREE T4on 09-16-2020 Free T4 [Mass/Vol] 0.92 ng/dL Normal 0.78-2.19 [facility] Comment on above: Performed By: #### F T4 #### [facility] [address] [place] [address] Hola Veronique GLYCOHEMOGLOBIN A1Con 2019 Glucose [Mass/Vol] 114 mg/dL Normal [facility] Comment on above: Performed By: #### A 1C #### [facility] [address] [place] [address] Hola Veronique HbA1c (Bld) [Mass fraction] 5.6 % Normal <=6.0 [facility] Comment on above: Performed By: #### A 1C #### [facility] [address] [place] [address] Hola Veronique TSHon 09-16-2020 TSH Qn SEE BELOW Normal [facility] Comment on above: Result Comment: <0.3 4 UIU/ml HYPERTHYROID 0.34-5.60 UIU/ml EUTHYROID >5.60 UIU/ml HYPOTHYROID Performed By: #### F T3, TSH #### [facility] [address] [place] [address] Hola Piper TSH Qn 11.588 uIU/mL Critically high 0.470-4.680 [facility] Comment on above: Performed By: #### F T3, TSH #### [facility] [address] [place] [address] Hola Piper VAGINITIS/VAGINOSIS DNA PROB Francisco Javier 09-14-2020 Libra species Negative Normal Negative [facility] Comment on above: Performed By: #### V AGINT #### [facility] [address] [place] [address] Hola Veronique Gardnerella vaginalis Positive Abnormal Negative [facility] Comment on above: Performed By: #### V AGINT #### [facility] [address] [place] [address] Hola Piper Trichomonas vaginalis Negative Normal Negative [facility] Comment on above: Performed By: #### V AGINT #### [facility] [address] [place] [address] Hola Piper CTA CHEST W WO CONTRASTon CTA [...] Kevon Mast DO 04/01/19 Final result Normal [facility] Coding Summary.on 01-19-2018 Coding Summary. CODING DATE: 018 FINAL [facility] STATUS: Home (Routine DC) PAYOR: Commercial Insurance [...] Spears Date Saved: 01/19/2018 10:03 am Normal [facility] [place] Mamm Screen w/CAD if perf and [...] VERY IMPORTANT TO YOUR HEALTH. THE CURRENT CITIZEN OF [place] [employer] AND N[employer] COMPREHENS[employer] GUIDELINES RECOMMENDS ANNUALMAMMOGRAPHY BEGINNING AT AGE 40. THIS FACILITY UTILIZES A REMINDER SYSTEM TO ENSURE ALL PATIENTS RECEIVE REMINDERNOTIFICATIONS AT THE APPROPRIATE TIME BASED ON THE RECOMMENDATIONS OF THIS EXAM.\X09\ FINAL REPORT Dictated: 01/17/2018 3:08 pm Jarret Mena MD Signed (Electronic Signature): 01/17/2018 3:08 pm Signed by: Jarret Mena MD Transcribed by: CHONG Technologist: VICIK Assessment: BI-RADS Category 1-Negative Recommendation: Normal interval follow-up Normal [facility] Free T4on 01-15-2018 Thyroxine (T4) free 0.74 ng/dL Normal 0.58-1.64 [facility] Comment on above: Performed By: #### 2 [id number], [id number] ####[facility] [address] [place] [address] TSHon 01-15-2018 Thyroid stimulating hormone (TSH) 14.28 mcIU/mL High 0.34-5.60 [facility] Comment on above: Performed By: #### 2 [id number], [id number] ####[facility] [address] [place] [address] Coding Summary.on 01-01-2018 Coding Summary. CODING DATE: 018 FINAL [facility] STATUS: Home (Routine DC) PAYOR: Commercial Insurance [...] Spears Date Saved: 01/01/2018 01:37 pm Normal [facility] PROGRESSon 12-31-2017 PROGRESS HNO ID: [id number] thor: Arnold Alva: (none)Author Type: PhysicianType: Progress NotesFiled: 12/31/2017 2:03 PMNote Text:Heart and Vascular [facility] Analy Martinez Department of Cardiovascular MedicineOUTPATIENT VISIT DATE December 31, 2017OUTPATIENT VISIT TYPEESTABLECU HEALTH BEAU[facility]ITALPR[facility] PHYSICIAN:Daina Amin MD ([facility])[address] [facility] [place] [address]Pnvgq: [phone]: [phone] PHYSICIANDaina Amin MD ([facility])[address] [facility] ABMEGHAST. MARY[facility] MED[facility] [address]WCUBF COMPLAINT:No chief complaint on file.HISTORY OF PRESENT ILLNESS:Lexie Corrales was referred for consultation by Dr. Amin. Opinions andrecommendations in this consultation will be transmitted back to thereferring physician by [facility] notes or via mail.Ms. Corrales is a 42 year old female who is seen today for follow upevaluation of right gastrocnemius DVT and small saphenous veinthrombophlebitis diagnosed at the [facility] 09/25/17.States she is doing well, has [...] Follow up as needed.Arnold Guillen MD Normal [facility] US LE Venous Duplex Righton 12-31-2017 US [...] M.D. Transcribed by: CHONG Technologist: RUPINDER Maki [facility] US-US LE Venous Duplex Right IMPORTon 12-31-2017 US-US LE Venous Duplex Right IMPORT Images were obtained outside of [facility] [id number] Normal [facility] CNOVon 11-03-2017 CNOV Office Visit (VASSFT) ----LEXIE CORRALES ([id number]) 1975 FDate Time Provider Pzejehgpuy76/18/17 1:30 PM ARNOLD GUILLEN During your visit today, we recorded the following information about you: Pulse Respiration Blood pressure 72/minute 16/minute 137/86Danishelli Guillen MD 11/03/2017 1:36 PM [facility] and Vascular InstituteWishon and Analy [facility] Department of Cardiovascular MedicineOUTPATIENT VISIT DATE November 03, 2017OUTPATIENT VISIT TYPEESTABLISHEDPRIMARY CARE PHYSICIAN:Daina Amin MD ([facility])[address] [place] [address]Vzdnq: [phone]: [phone] PHYSICIANDaina Amin MD ([facility])[address] [facility] [address]QNWKJ COMPLAINT:No chief complaint on file.HISTORY OF PRESENT ILLNESS:Lexie Corrales was referred for consultation by Dr. Amin. Opinions andrecommendations in this consultation will be transmitted back to the referringphysician by Epic notes or via mail.Ms. Corrales is a 42 year old female who is seen today for follow up evaluationof right gastrocnemius DVT and small saphenous vein thrombophlebitis diagnosedat the [facility] 09/25/17.Underwent recent follow DUS which showed [...] compression therapy.Arnold Guillen MDReferring Provider: DAINA AMIN [[id number]]Allergies As of Date: 11/03/2017 Noted Allergy ReactionPENICILLINS 10/15/2017 8 - GI UpsetDate Reviewed: 11/03/2017Reviewed by: Arnold Guillen - Fully AssessedPrimary Visit Diagnosis:Personal history of DVT (deep vein thrombosis) [Z86.718]Order(s):US LEG VEIN DVT UNL [facility]AS [facility] [[id number]] Order #: [id number] FUTUREPrescriptions as of 11/03/2017 Sig: LEVOTHYROXINE 100 [...] (around 01/04/2018).Follow-up and Disposition History RecordedEncounter Number: [id number] Status:Closed by ARNOLD GUILLEN MD on 11/03/17 [facility] PROGRESSon 11-03-2017 PROGRESS HNO ID: [id number] thor: Arnold Alva: (none)Author Type: PhysicianType: Progress NotesFiled: 11/03/2017 1:36 PMNote Text:Heart and Vascular InstituteRobshiprock-northern navajo medical centerb and Analy [place] Department of Cardiovascular MedicineOUTPATIENT VISIT DATE November 03, 2017OUTPATIENT VISIT TYPEESTABLISHEDPRIMARY CARE PHYSICIAN:Daina Amin MD ([facility])[address] [facility] [place] [address]Ofbuc: [phone]: [phone] PHYSICIANDaina Amin MD ([facility])[address] [facility] [address]LBGQA COMPLAINT:No chief complaint on file.HISTORY OF PRESENT ILLNESS:Lexie Corrales was referred for consultation by Dr. Amin. Opinions andrecommendations in this consultation will be transmitted back to thereferring physician by [facility] notes or via mail.Ms. Corrales is a 42 year old female who is seen today for follow upevaluation of right gastrocnemius DVT and small saphenous veinthrombophlebitis diagnosed at the [facility] 09/25/17.Underwent recent follow DUS which showed [...] in interim. Continue compression therapy.Arnold Guillen MD [facility] CNOVon 10-15-2017 CNOV Office Visit (VASSFT) ----COLELEXIE Herman ([id number]) 1975 [facility] Kggsvntppt90/29/17 3:20 PM ARNOLD GUILLEN During your visit today, we recorded the following information about you: Pulse Respiration Blood pressure Weight 82/minute 16/minute 116/80 98.9 kg Height 1.702 Chuck Guillen MD 10/15/2017 3:35 PM [facility] and Vascular InstituteWishon and Analy [place] Department of Cardiovascular MedicineOUTPATIENT VISIT DATE October 15, 2017OUTPATIENT VISIT TYPENEWPRFORMERLY [facility]ITALRY CARE PHYSICIAN:Daina Amin MD ([facility])[address] [facility] [place] [place] [address]Nzdeo: [phone]: [phone] PHYSICIANDaina Amin MD ([facility])[address] [facility]IELENAST. MARY[facility] MEDICAL C[facility] [address]NSKJG COMPLAINT:No chief complaint on file.HISTORY OF PRESENT ILLNESS:Lexie Corrales was referred for consultation by Dr. Amin. Opinions andrecommendations in this consultation will be transmitted back to the referringphysician by Epic notes or via mail.Ms. Corrales is a 42 year old female who is seen today for evaluation of rightgastrocnemius DVT and small saphenous vein thrombophlebitis diagnosed at [place] 09/25/17.This had been preceded by few day [...] kg (218 lb) SpO2 98% BMI 34.14 kg/l9Zsyvpbm appearance: well nourished, alert and cooperative individual, [...] with test results.INGE Mendezeferrjose Provider: DAINA AMIN [[id number]]Allergies As of Date: 10/15/2017 Noted Allergy ReactionPENICILLINS 10/15/2017 8 - GI UpsetDate Reviewed: 10/15/2017Reviewed by: Arnold Guillen - Fully AssessedPrimary Visit Diagnosis:Personal history of DVT (deep vein thrombosis) [Z86.718]Order(s): LEG VEIN DVT UNL [facility]AS LAB [[id number]] Order #: [id number] FUTUREPrescriptions as of 10/15/2017 Sig: LEVOTHYROXINE 100 [...] (around 11/12/2017).Follow-up and Disposition History RecordedEncounter Number: [id number] Status:Closed by ARNOLD GUILLEN MD on 10/15/17 Normal [facility] PROGRESSon 10-15-2017 PROGRESS HNO ID: [id number] thor: Arnold Alva: (none)Author Type: PhysicianType: Progress NotesFiled: 10/15/2017 3:35 PMNote Text:Heart and Vascular InstituteRobshiprock-northern navajo medical centerb and Analy [facility] Department of Cardiovascular MedicineOUTPATIENT VISIT DATE October 15, 2017OUTPATIENT VISIT TYPENEWPRIMARY CARE PHYSICIAN:Daina Amin MD ([facility])[address] [place] [address]Rvovn: [phone]: [phone] PHYSICIANMarmatheus Amin MD ([facility])[address] [facility] [address]BL COMPLAINT:No chief complaint on file.HISTORY OF PRESENT ILLNESS:Lexie Corrales was referred for consultation by Dr. Amin. Opinions andrecommendations in this consultation will be transmitted back to thereferring physician by [facility] notes or via mail.Ms. Corrales is a 42 year old female who is seen today for evaluation ofright gastrocnemius DVT and small saphenous vein thrombophlebitisdiagnosed at the [facility] 09/25/17.This had been preceded by few [...] kg (218 lb) SpO2 98% BMI 34.14 kg/t3Xaidxla appearance: well nourished, alert and cooperative individual, [...] up with test results.Arnold Guillen MD Normal [facility] Vital Signs Date Time Vital Sign Value Performing Clinician Facility 07-15-2024 08:44-0400 Body height 170.18 cm [facility] 07-15-2024 08:44-0400 Body mass index (BMI) [Ratio] 34.9 kg/m2 [facility] 07-15-2024 08:44-0400 Body weight 101.15 kg [facility] 07-15-2024 08:44-0400 Diastolic blood pressure 72 mm[Hg] [facility] 07-15-2024 08:44-0400 Heart rate 79 /min [facility] 07-15-2024 08:44-0400 Systolic blood pressure 126 mm[Hg] [facility] 10-15-2023 08:30-0500 Body height 170.18 cm Carola Benavides Other [facility] Other 10-15-2023 08:30-0500 Body mass index (BMI) [Ratio] 37.59 kg/m2 Carola Benavides Other [facility] Other 10-15-2023 08:30-0500 Body weight 108.86 kg Carola Benavides Other [facility] Other 10-15-2023 08:30-0500 Diastolic blood pressure 62 mm[Hg] Carola Benavides Other [facility] Other 10-15-2023 08:30-0500 SaO2% (BldA) [Mass fraction] 96 % Carola Benavides Other [facility] Other 10-15-2023 08:30-0500 Systolic blood pressure 124 mm[Hg] Carola Benavides Other [facility] Other Encounters Encounter Date Encounter Type Care Provider Facility Start: 07-15-2024 End: 07-15-2024 ambulatory [facility] Work Phone: Start: 07-15-2024 End: 07-15-2024 Patient encounter procedure [facility] Work Phone: Start: 10-15-2023 End: 10-15-2023 ambulatory Carola Benavides Other [facility] Other Start: 10-15-2023 Office outpatient visit 15 minutes Carola Benavides [facility] Start: 09-16-2020 End: 09-17-2020 Patient encounter procedure JANEE EPSTEIN Facility:[facility] Start: 09-12-2020 End: 09-12-2020 Patient encounter procedure JANEE EPSTEIN Facility:[facility] Start: 04-01-2019 End: 04-01-2019 Emergency department patient visit BIJAL VILLAGRAN [facility] Start: 01-15-2018 End: 01-16-2018 Ambulatory DAINA~[id number] UNKNOWN AMIN Facility:[facility] Start: 12-31-2017 End: 01-01-2018 Ambulatory Arnoldshelli Guillen Facility:[facility] Start: 11-03-2017 End: 11-04-2017 Ambulatory ARNOLD SPENCEAVA [facility] Start: 10-15-2017 End: 10-16-2017 Ambulatory ARNOLD KASMICH [facility] Procedures Date Procedure Procedure Detail Performing Clinician Start: 04-01-2019 Ct angiography chest w/contrast/noncontrast BIJAL VILLAGRAN Start: 04-01-2019 Ecg routine ecg w/le ast 12 lds w/i&r BIJAL VILLAGRAN Start: 01-05-2018 General examination of patient Carola Benavides Other Start: 01-05-2018 Screening mammography J candelario Benavides Other Start: 01-05-2018 Venereal disease screening Carola Benavides Other Plan of Treatment Date Care Activity Detail Author [facility] Payers Date Payer Category Payer Private Health Insurance [id number] 2017 Unknown [id number] 1975 Unknown [id number] .16.84 [id number] 1975 Unknown [id number] .16.84 [id number] 1975 Unknown [id number] .16.84 [id number] 1959 Unknown [id number] [id number] [id number] Social History Date Type Detail Facility Unknown if ever smoked [facility] Other Sex Assigned At Sex Assigned At Bir th [facility] Other Start: 07-15-2024 Tobacco smoking status NHIS Never smoked tobacco (finding) [facility] Start: 1975 Sex Assigned At Female F [facility] Evaluation note 10-15-2023 Note Date & [...] understanding and is agreeable to treatment plan. [employer] [employer] [facility] Other Evaluation note Note Date & Type Note Facility Evaluation note Diagnosis Onset Date Fatigue acute Hair loss acute Hypothyroidism acute [facility] Work Phone: History general Narrative - Reported Note Date & Type Note Facility History general Narrative - Reported Type Medical History compliance with medical treatmen t Medical History depression Medical History DVT, Problem : after taking dottie h control, Medical History Hypothyroidism, Surgical History Appendectomy, 2005 Surgical History Endometrial Ablation, Surgical History Hysterectomy; : KRYSTLE, BS -pathology-Adenomyosis, Surgical History Tubal Ligation, [facility] [employer] [facility] Other Summary Purpose Family History Relationship Condition Age at Onset Recorded Date/T angel mother Hypertension Unknown Advance Directives Advance Directive Response Recorded Date/ Time Advance Directives No January 25, 024 10:22am Chief Complaint and Reason for Visit Chief Complaint thyroid check Reason for Visit Fatigue Hair loss Hypothyroidism Additional Source Comments INFORMATION SOURCE (unrecogn ized section and content) DATE CREATED AUTHOR 05/08/2018 [facility] DATE CREATED AUTHOR AUTHOR'S ORGANIZ ATION 05/08/2018 [facility] DATE CREATED AUTHOR AUTHOR'S ORGANIZ ATION 04/10/2019 Alyssa Teixeira [facility] DATE CREATED AUTHOR AUTHOR'S ORGANIZ ATION 09/22/2020 [...] BE BASED ON THE PRIMARY CLINICAL RECORDS. [facility] [employer] [facility] provides no warranty or guarantee of the accuracy or completeness of information in this document.
[2025-03-08 07:12] LABS: Basophils Absolute Auto 0.1 10^3/uL (0.0-0.1); Eosinophils Absolute Auto 0.1 10^3/uL (0.0-0.7); Eosinophils Percent Auto 1.8 % (0.9-7.0); Hematocrit 42.4 % (36.0-48.0); Hemoglobin 14.1 g/dL (12.0-16.0); Immature Granulocytes Abs Auto 0.01 10^3/uL (0.00-0.03); Immature Granulocytes Pct Auto 0.2 % (0.0-0.5); Lymphocytes Absolute Auto 2.2 10^3/uL (1.2-3.8); Lymphocytes Percent Auto 42.5 % (20.5-60.0); Mean Corpuscular HGB Conc 33.3 g/dL (29.9-35.2); Mean Corpuscular Hemoglobin 29.2 pg (26.7-34.0); Mean Corpuscular Volume 87.8 fL (81.0-99.0); Monocytes Absolute Auto 0.5 10^3/uL (0.3-0.8); Monocytes Percent Auto 10.2 % (1.7-12.0); Neutrophils Absolute Auto 2.3 10^3/uL (1.4-6.5); Neutrophils Percent Auto 44.3 % (43.0-75.0); Platelet Count 183 10^3/uL (150-450); Red Blood Count 4.83 10^6/uL (4.20-5.40); Red Cell Distribution Width 13.1 % (11.0-15.0); White Blood Count 5.1 10^3/uL (4.0-11.0)
[2025-03-08 07:21] LABS: Estimated Average Glucose 114 mg/dL; Glycohemoglobin A1C 5.6 % (4.5-6.2)
[2025-03-08 07:53] LABS: Alanine Aminotransferase 17 U/L (14-59); Albumin Globulin Ratio 1.2; Albumin Level 3.4 g/dL (3.4-5.0); Alkaline Phosphatase 44 U/L (46-116); Anion Gap 11.4; Aspartate Amino Transferase 12 U/L (15-37); Bilirubin Total 0.5 mg/dL (0.2-1.0); Calcium 8.4 mg/dL (8.5-10.1); Carbon Dioxide 27.1 mmol/L (21.0-32.0); Chloride 107 mmol/L (98-107); Chol HDL Ratio 2.2; Cholesterol 134 mg/dL (<=200); Estimated GFR (African America >60 (>=60 mL/min/1.73m^2); Estimated GFR (Non-African Ame >60 (>=60 mL/min/1.73m^2); Free T3 2.32 pg/mL (2.18-3.98); Globulin 2.8 g/dL; Glucose 92 mg/dL (74-106); HDL Cholesterol 61 mg/dL (40-60); Potassium 3.5 mmol/L (3.5-5.1); Sodium 142 mmol/L (136-145); Thyroid Stimulating Hormone 5.348 uIU/mL (0.358-3.740); Total Protein 6.2 g/dL (6.4-8.2); Triglycerides 78 mg/dL (<=150); VLDL CHOLESTEROL 15.6 mg/dL
[2025-03-09 04:07] LABS: Insulin 12.6 uIU/mL (2.6-24.9)
== END 2025-03-08 06:57 | disposition home or self-care (01) ==
LOC: LAB 06:56
PROVIDERS: PCP Nurse Practitioner Family; Visit Provider Nurse Practitioner Family
DX: E03.9 Hypothyroidism, unspecified (principal)
CPT/HCPCS: 36415; 80053; 80061; 82306; 83036; 83525; 83540; 84436; 84443; 84481; 85025